=== PATIENT | female | born 1980 | race Two or more races ===

== ENCOUNTER 2020-08-25 23:17 | Emergency (ER) | payer BC ==
[~2020-08-25] VITALS: Ht 172.7 cm; Wt 117.4 kg
--- NOTE | 2020-08-25 23:46 | NUR ---
PT TO ROOM FROM LOBBY AT THIS TIME.
--- NOTE | 2020-08-26 00:22 | NUR ---
HARISH MOSS PICKER AT BEDSIDE FOR ED EVAL.
[2020-08-26] MEDS ORDERED: MAALOX/HYOSCYAMINE/LIDOCAINE 45 ML BTL PO ONE (00:30)
[2020-08-26] MEDS ORDERED: ONDANSETRON ODT 4 MG PO ONE (00:30)
[2020-08-26] MEDS ORDERED: ONDANSETRON ODT 4 MG ONE (00:35)
[2020-08-26] MEDS ORDERED: MAALOX/HYOSCYAMINE/LIDOCAINE 45 ML BTL ONE (00:36)
[2020-08-26 00:50] LABS: BASOPHILS % (AUTO) 1 % (0-1); EOSINOPHILS % (AUTO) 3 % (1-7); LYMPHOCYTES % (AUTO) 32 % (22-44); MEAN CORPUSCULAR HEMOGLOBIN 26.9 pg (27.0-34.8); MEAN CORPUSCULAR HGB CONC 32.8 g/dL (32.4-35.8); MEAN PLATELET VOLUME 7.4 fL (7.4-10.4); MONOCYTES % (AUTO) 7 % (2-9); NEUTROPHILS % (AUTO) 58 % (42-75); PLATELET COUNT 361 x10^3/uL (130-400); RED BLOOD COUNT 4.75 x10^6/uL (3.82-5.3); RED CELL DISTRIBUTION WIDTH 13.9 % (9.6-15.2)
--- NOTE | 2020-08-26 00:50 | NUR ---
PT MEDICATED PER DEC. LAB AT BEDSIDE. PT PLACED ON PULSE OX AND BP MONITORING. VSS. PT IN NAD. CALL LIGHT IN REACH
[2020-08-26 00:59] LABS: MD NO
[2020-08-26 01:06] LABS: ALANINE AMINOTRANSFERASE 19 U/L (12-78); ALKALINE PHOSPHATASE 70 U/L (45-117); ANION GAP 4 mmol/L (5-15); BILIRUBIN,TOTAL 0.5 mg/dL (0.2-1.0); CALCIUM 8.7 mg/dL (8.5-10.1); CHLORIDE 108 mmol/L (98-107); CREATININE 0.84 mg/dL (0.55-1.02); TOTAL PROTEIN 7.1 g/dL (6.4-8.2)
[2020-08-26 01:07] LABS: ALBUMIN 3.6 g/dL (3.4-5.0)
--- NOTE | 2020-08-26 01:28 | NUR ---
US AT BEDSIDE
--- NOTE | 2020-08-26 02:34 | NUR ---
PT UP TO BATHROOM FOR UA. UA SENT TO LABE. PT BACK TO BED AND HAS NO NEEDS AT THIS TIME. CALL LIGHT IN REACH
[2020-08-26 02:47] LABS: HCG UR SG 1.035 (1.003-1.030)
[2020-08-26 02:52] LABS: MICROSCOPIC INDICATED
[2020-08-26 03:49] VITALS: BP 108/62
--- NOTE | 2020-08-26 03:50 | NUR ---
Patient given discharge instructions and they have confirmed that they understand the instructions. Patient ambulatory with steady gait.
== END 2020-08-26 03:56 | disposition home or self-care (01) ==
LOC: ED 08-26 00:32
DX: K29.00 Acute gastritis without bleeding (principal); R11.2 Nausea with vomiting, unspecified; R10.13 Epigastric pain; R10.11 Right upper quadrant pain
CPT/HCPCS: 36415; 76700; 80053; 81001; 81025; 83690; 85025; 87086; 93005; 99285; Q0162